=== PATIENT | male | born 1945 | race Caucasian/White ===

== ENCOUNTER → 2019-07-21 | Outpatient (CLI) | payer OTHER | END | disposition home or self-care (01) | LOC: US 06-20 00:54 | DX: Z13.6 Encounter for screening for cardiovascular disorders (principal); Z72.0 Tobacco use ==

== ENCOUNTER 2023-03-29 02:25 | Emergency (ER) | payer OTHER ==
[~2023-03-29] VITALS: Ht 165.1 cm; Wt 126.1 kg
== END 2023-03-29 05:25 | disposition home or self-care (01) ==
LOC: ED 02:25
DX: S01.81XA Laceration without foreign body of other part of head, initial encounter (principal); W22.03XA Walked into furniture, initial encounter; Y93.89 Activity, other specified; Y92.009 Unspecified place in unspecified non-institutional (private) residence as the place of occurrence of the external cause; Y99.8 Other external cause status

== ENCOUNTER → 2023-04-05 | Outpatient (CLI) | payer OTHER | END | disposition home or self-care (01) | LOC: US 13:24 | PROVIDERS: ATTEND Nurse Practitioner Family | DX: I65.23 Occlusion and stenosis of bilateral carotid arteries (principal); I67.82 Cerebral ischemia; G93.89 Other specified disorders of brain ==

== ENCOUNTER → 2023-08-03 | Outpatient (CLI) | payer OTHER | END | disposition home or self-care (01) | LOC: CARD 07-27 13:00 | PROVIDERS: ATTEND Internal Medicine Cardiovascular Disease | DX: R55 Syncope and collapse (principal) ==

== ENCOUNTER → 2023-11-05 | Outpatient (CLI) | payer OTHER | END | disposition home or self-care (01) | LOC: MRI 12:39 | PROVIDERS: ATTEND Nurse Practitioner Family | DX: G93.89 Other specified disorders of brain (principal); J34.1 Cyst and mucocele of nose and nasal sinus; R55 Syncope and collapse; R29.6 Repeated falls; I67.9 Cerebrovascular disease, unspecified; I69.30 Unspecified sequelae of cerebral infarction ==

== ENCOUNTER → 2024-03-30 | Outpatient (CLI) | payer OTHER | END | disposition home or self-care (01) | LOC: CT 12:32 | PROVIDERS: ATTEND Nurse Practitioner Family | DX: R22.1 Localized swelling, mass and lump, neck (principal); G45.9 Transient cerebral ischemic attack, unspecified; I10 Essential (primary) hypertension; G47.33 Obstructive sleep apnea (adult) (pediatric) ==

== ENCOUNTER 2025-01-26 11:14 | Emergency (ER) | payer OTHER ==
[~2025-01-26] VITALS: Ht 175.2 cm; Wt 62.6 kg
[2025-01-26] MEDS ORDERED: ASPIRIN 325 MG TAB PO ONE (11:40)
[2025-01-26 11:54] LABS: BASO % 0.5 % (0.0-1.0); EOS # 0.2 10*3/uL (0.0-0.4); EOS % 1.9 % (1.0-4.0); HEMATOCRIT 48.5 % (42.0-52.0); MEAN CORPUSCULAR HGB 29.3 pg (27.0-31.0); MEAN CORPUSCULAR HGB CONC 32.2 g/dl (33.0-37.0); MEAN PLATELET VOLUME 9.6 fl (9.6-12.3); MONO # 0.8 10*3/uL (0.1-1.0); MONO % 9.7 % (3.0-9.0); NEUT # 5.4 10*3/uL (2.3-7.9); NEUT % 67.1 % (47.0-73.0); PLATELET COUNT AUTOMATED 188 10*3/uL (130-400); RED BLOOD COUNT 5.33 10*6/uL (4.50-5.90); RED CELL DISTRI WIDTH 12.7 % (0-14.5); WHITE BLOOD COUNT 8.1 10*3/uL (4.8-10.8)
[2025-01-26 12:06] LABS: ACT PARTIAL THROMBO TIME 26.3 SECONDS (20.0-32.1)
[2025-01-26 12:14] LABS: BUN 14 mg/dl (9-23); CHLORIDE 98 mmol/L (98-107); POTASSIUM 3.8 mmol/L (3.4-5.1)
[2025-01-26] MEDS ORDERED: HEPARIN SODIUM 250 ML IV SCH (12:20)
[2025-01-26] MEDS ORDERED: MORPHINE Sulfate 2 MG/ML SYR IV ONE (12:45)
[2025-01-26] MEDS ORDERED: NITROGLYCERIN 0.4 MG BOT SL ONE (12:50)
[2025-01-26] MEDS ORDERED: Dextrose/Nitroglycerin 250 ML IV SCH (12:55)
== END 2025-01-26 13:44 | disposition short-term general hospital (02) ==
LOC: ED 11:14
PROVIDERS: Internal Medicine
DX: I21.4 Non-ST elevation (NSTEMI) myocardial infarction (principal); Z86.73 Personal history of transient ischemic attack (TIA), and cerebral infarction without residual deficits